=== PATIENT | male | born 1970 ===

== ENCOUNTER 2021-02-25 07:01 | Emergency (ER) | payer OTHER ==
[2021-02-25] MEDS ORDERED: Diltiazem 25 MG/5 ML SDV IV STA (07:33)
--- NOTE | 2021-02-25 08:47 | EDM.PDOC ---
ED HPI GENERAL MEDICAL PROBLEM - General Chief Complaint: Chest Pain Stated Complaint: CHEST PAIN Time Seen by Provider: 02/25/21 07:40 Source of Information: Reports: Patient, RN Notes Reviewed History Limitations: Reports: No Limitations - History of Present Illness INITIAL COMMENTS - FREE TEXT/NARRATIVE: This patient presents to the emergency department for evaluation of chest pain. He states that he has a history of atrial fibrillation and can feel when he goes into it. [place] the [place] and living in [place] for the past [place] days. He woke at approximately 1 AM and states that he knew he was in A. fib at that time. He blew into a bottle and raise his legs up knees towards his head and was able to convert himself. He states he knows when he converts as well and then was able to go back to sleep. He woke again at 3 AM and states he noticed his heart rate was very fast but he did not think he was in A. fib at that time he states his sensation was not quite the same but was more of just a racing heart versus his typical A. fib feeling. He states he went outside, walked around, tried some maneuvers to stop it himself and was unable to do so. He then drove himself to the hospital. On arrival to the ER he was in a tachyarrhythmia with a heart rate of 160. There are P waves evident on the EKG; however, and patient continues to state he does not believe it is A. fib but something else at this time. He denies any difficulty breathing. He denies a cough, nausea, vomiting, diarrhea. He states he did consume 10-12 beers last night ending drinking and going to bed at approximately 11:30 PM. He has been converted out of A. fib 3 times in the past, once with pharmaceuticals and twice with electricity. He is not sure of when the last time was but was a few months ago. He has not been seen and evaluated by a boxer operator. He lives in the [facility]. He describes the chest pain he felt this morning as a tightening "behind his heart." - Related Data Allergies Allergy/AdvReac Type Severity Reaction Status Date / Time No Known Allergies Allergy Verified 02/25/21 07:19 Past Medical History Cardiovascular History: Reports: Afib, Hypertension Other Respiratory History: Covid 19 x2 Social & Family History - Caffeine Use Caffeine Use: Reports: Coffee, Soda - Alcohol Use Days Per Week of Alcohol Use: 7 Number of Drinks Per Day: 3 Total Drinks Per Week: 21 Date of Last Drink: 02/24/21 - Recreational Drug Use Recreational Drug Use: No ED ROS GENERAL - Review of Systems Review Of Systems: Comprehensive ROS is negative, except as noted in HPI. ED EXAM, GENERAL - Physical Exam Exam: See Below Exam Limited By: No Limitations General Appearance: Alert, No Apparent Distress Eye Exam: Bilateral Eye: EOMI, Normal Inspection, PERRL Ears: Normal External Exam, Hearing Grossly Normal Nose: Normal Inspection Throat/Mouth: Normal Inspection Head: Atraumatic, Normocephalic Neck: Normal Inspection, Full Range of Motion Respiratory/Chest: No Respiratory Distress, Lungs Clear, Normal Breath Sounds, No Accessory Muscle Use Cardiovascular: Normal Peripheral Pulses, Tachycardia, Other (On monitor patient's heart rate was in the 160s, auscultated apical pulse was 80) Peripheral Pulses: 4+: Radial (L), Radial (R) Neurological: Alert, Oriented Psychiatric: Normal Affect Skin Exam: Warm, Dry, Intact Course - Vital Signs Last Recorded V/S: Last Vital Signs Temp 36.6 C 02/25/21 07:40 Pulse 69 02/25/21 07:58 Resp 18 02/25/21 07:51 BP 128/86 02/25/21 07:58 Pulse Ox 97 02/25/21 07:51 - Orders/Labs/Meds Labs: Laboratory Tests 02/25/21 02/25/21 02/25/21 Range/Units 07:15 07:15 07:15 WBC 6.6 (4.0-11.0) K/uL RBC 5.07 (4.50-6.50) M/uL Hgb 15.8 (13.0-18.0) g/dL Hct 43.8 (40.0-54.0) % MCV 86 (76-96) fL MCH 31.2 (27.0-32.0) pg MCHC 36.1 H (31.0-35.0) g/dL RDW 12.9 (11.0-16.0) % Plt Count 240 (150-400) K/uL MPV 10.0 (6.0-10.0) fL Neut % (Auto) 64.2 (45.0-70.0) % Lymph % (Auto) 20.6 (20.0-40.0) % Stokes % (Auto) 13.3 H (3.0-10.0) % Eos % (Auto) 1.4 (1.0-5.0) % Baso % (Auto) 0.5 (0.0-0.5) % Neut # (Auto) 4.21 (2.00-7.50) K/uL Lymph # (Auto) 1.35 L (1.50-4.00) K/uL Stokes # (Auto) 0.87 H (0.20-0.80) K/uL Eos # (Auto) 0.09 (0.04-0.40) K/uL Baso # (Auto) 0.03 (0.02-0.10) K/uL Sodium 139 (136-145) mmol/L Potassium 4.4 (3.5-5.1) mmol/L Chloride 106 (98-107) mmol/L Carbon Dioxide 21.0 (21.0-32.0) mmol/L Anion Gap 16.4 H (5.0-15.0) mmol/L BUN 15 (8-26) mg/dL Creatinine 0.99 (0.70-1.30) mg/dL Est Cr Clr Drug Dosing 101.48 mL/min Estimated GFR (MDRD) > 60 (>60) MLS/MIN BUN/Creatinine Ratio 15.2 (6-25) Glucose 135 H (74-100) mg/dL Calcium 8.5 (8.5-10.1) mg/dL Troponin I 0.049 (0.000-0.060) ng/mL SARS CoV-2 RNA Rapid GUY 02/25/21 Range/Units 07:34 WBC (4.0-11.0) K/uL RBC (4.50-6.50) M/uL Hgb (13.0-18.0) g/dL Hct (40.0-54.0) % MCV (76-96) fL MCH (27.0-32.0) pg MCHC (31.0-35.0) g/dL RDW (11.0-16.0) % Plt Count (150-400) K/uL MPV (6.0-10.0) fL Neut % (Auto) (45.0-70.0) % Lymph % (Auto) (20.0-40.0) % Stokes % (Auto) (3.0-10.0) % Eos % (Auto) (1.0-5.0) % Baso % (Auto) (0.0-0.5) % Neut # (Auto) (2.00-7.50) K/uL Lymph # (Auto) (1.50-4.00) K/uL Stokes # (Auto) (0.20-0.80) K/uL Eos # (Auto) (0.04-0.40) K/uL Baso # (Auto) (0.02-0.10) K/uL Sodium (136-145) mmol/L Potassium (3.5-5.1) mmol/L Chloride (98-107) mmol/L Carbon Dioxide (21.0-32.0) mmol/L Anion Gap (5.0-15.0) mmol/L BUN (8-26) mg/dL Creatinine (0.70-1.30) mg/dL Est Cr Clr Drug Dosing mL/min Estimated GFR (MDRD) (>60) MLS/MIN BUN/Creatinine Ratio (6-25) Glucose (74-100) mg/dL Calcium (8.5-10.1) mg/dL Troponin I (0.000-0.060) ng/mL SARS CoV-2 RNA Rapid GUY Negative Meds: Medications Discontinued Medications Generic Name Dose Route Start Last Admin Trade Name Freq PRN Reason Stop Dose Admin Diltiazem HCl 25 mg 02/25/21 07:33 02/25/21 07:38 Diltiazem 25 Mg/5 Ml Sdv IV 02/25/21 07:34 25 mg NOW STA Administration - Re-Assessments/Exams Free Text/Narrative Re-Assessment/Exam: This patient presents to the emergency department with chest pain and fast heartbeat. History and clinical findings are most consistent with atrial fibrillation with RVR that was successfully interrupted with Cardizem. The p atient remained in a normal rhythm for 2 hours prior to discharge. He states he felt much better and was able to sleep some. Physical examination was without findings and there was no evidence of atrial flutter, multifocal atrial tachycardia, SVT, Evggq-Ahrirhabd-Rappd syndrome, or ventricular arrhythmias. There is no evidence of respiratory distress and lab findings were completely normal today. He was discharged home with instructions to follow-up with his primary care provider next week and referral to cardiology. He was reminded to return to the ER should he have any problems. The patient was stable at the time of discharge. 02/25/21 10:00 Departure - Departure Time of Disposition: 09:20 Disposition: Home, Self-Care 01 Condition: Good Clinical Impression: Atrial fibrillation Instructions: Atrial Fibrillation, [id number] Forms: ED Department Discharge Care Plan Goals: follow up as needed. Sepsis Event Note (ED) - Focused Exam Vital Signs: Vital Signs Temp Pulse Resp BP Pulse Ox 02/25/21 07:58 69 128/86 02/25/21 07:51 71 18 128/86 97 02/25/21 07:40 36.6 C 18 121/89 98 02/25/21 07:26 36.8 C 154 H 18 133/88 96
== END 2021-02-25 09:30 | disposition home or self-care (01) ==
LOC: LB.ED 07:01
DX: I48.91 Unspecified atrial fibrillation (principal); I10 Essential (primary) hypertension; Z20.822 Contact with and (suspected) exposure to COVID-19
CPT/HCPCS: 36415; 80048; 84484; 85025; 87635; 93005; 96374; 99285; J3490; U0002